=== PATIENT | female | born 1995 | race Caucasian/White ===

== ENCOUNTER 2016-12-31 11:43 | Emergency (ER) | payer BC ==
--- NOTE | 2016-12-31 12:30 | ED.PDOC ---
History of Present Illness - General Chief Complaint: General Stated Complaint: left foot pain Time Seen by Provider: 12/31/16 12:17 Source: patient, family Exam Limitations: no limitations - History of Present Illness Initial Comments: Brenda Hatch 21 y/o female stated that left ankle swelled up 3 days ago no history of trauma ,no fever ,no other achy joints Timing/Duration: other - 3 days ag Improving Factors: rest Worsening Factors: movement Associated Symptoms: other - pain on weight bearing Allergies/Adverse Reactions: Allergies NO KNOWN ALLERGY Allergy (Verified 12/31/16 12:02) Home Medications: Ambulatory Orders Lidocaine [Aspercreme W/Lidocaine] 4 % EX BID #1 cre 12/31/16 Review of Systems - Review of Systems Constitutional: States: no symptoms reported EENTM: States: no symptoms reported Respiratory: States: no symptoms reported Cardiology: States: no symptoms reported Gastrointestinal/Abdominal: States: no symptoms reported Genitourinary: States: no symptoms reported Musculoskeletal: States: see HPI Skin: States: no symptoms reported Neurological: States: no symptoms reported Endocrine: States: no symptoms reported Hematologic/Lymphatic: States: no symptoms reported Past Medical History (General) - Patient Medical History Surgical History: tonsillectomy - Vaccination History Immunizations Up to Date: Yes - Social History Hx Tobacco Use: No Hx Alcohol Use: No Hx Substance Use: No Hx Substance Use Treatment: No Hx Depression: No - Activities of Daily Living Hospice Agency (if applicable):: None - Female History Patient is a Female of Child Bearing Age (10 -59 yrs old): Yes Patient : No Family Medical History - Family History Father Family History: Unknown Living Status: Still Living Physical Exam - Physical Exam General Appearance: Alert, Comfortable, No apparent distress Eye Exam: bilateral normal Ears, Nose, Throat: hearing grossly normal, normal ENT inspection, normal pharynx Neck: non-tender, full range of motion, supple Respiratory: chest non-tender, lungs clear, normal breath sounds, no respiratory distress Cardiovascular/Chest: normal peripheral pulses, regular rate, rhythm, no edema, no gallop, no murmur Peripheral Pulses: radial,right: 2+, radial,left: 2+ Gastrointestinal/Abdominal: normal bowel sounds, non tender, soft, no organomegaly Extremity: normal range of motion, non-tender, normal inspection, other - left ankle rom slightly painful ,no instability noted,no active swelling noted left ankle Neurologic: no motor/sensory deficits, alert, normal mood/affect, oriented x 3 Skin Exam: normal color, warm/dry, cyanosis Lymphatic: no adenopathy Progress - EKG/XRAY/CT XRAY: ankle - no acute abnormalities per radiologist Departure - Departure Clinical Impression: Ankle pain, left Time of Disposition: 12:44 Disposition: Discharge to Home or Self Care Condition: Good Departure Forms: ED Discharge - Pt. Copy, Patient Portal Self Enrollment Instructions: DI for Ankle Pain Prescriptions: Lidocaine [Aspercreme W/Lidocaine] 4 % EX BID #1 cre Home Medications: Ambulatory Orders Lidocaine [Aspercreme W/Lidocaine] 4 % EX BID #1 cre 12/31/16
--- NOTE | 2016-12-31 12:35 | RAD ---
EXAM DESCRIPTION: Foot,Left 3 Views CLINICAL HISTORY: 21 years, Female, pain and swelling COMPARISON: None. FINDINGS: Three views the LEFT foot were performed. No localized soft tissue swelling or radiopaque foreign body is identified. Bone mineralization is within normal limits. No fracture is identified. Bony alignment is maintained. No suspicious calcification is detected. IMPRESSION: No LEFT foot acute bony injury. Electronically signed by: Elayne Claire MD 12/31/2016 12:35 PM CDT
[2016-12-31 13:06] VITALS: BP 140/87; TEMP 99; O2SAT 100
== END 2016-12-31 13:07 | disposition home or self-care (01) ==
LOC: ER 11:43
DX: M25.572 Pain in left ankle and joints of left foot (principal)